=== PATIENT | female | born 1950 | race African-American/Black ===

== ENCOUNTER 2017-05-27 15:18 | Inpatient (IN) | payer OTHER, MEDICAID ==
[~2017-05-27] VITALS: Ht 157.5 cm; Wt 72.6 kg
[2017-05-27 15:30] VITALS: BP 99/59
[2017-05-27] MEDS ORDERED: CEFEPIME 2,000 MG in DEXTROSE 5% 100 ML IV ONE (17:20)
[2017-05-27] MEDS ORDERED: VANCOMYCIN 1GM/DEXT 5% PREMIX 200 ML IV ONE (17:20)
[2017-05-27] MEDS ORDERED: LEVOFLOXACIN 750 MG/D5W PREMIX 150 ML IV ONE (17:20)
[2017-05-27] MEDS ORDERED: VANCOMYCIN PER PHARMACY MC PRN (17:20)
[2017-05-27] MEDS ORDERED: [UNRECOGNIZED DRUG - OTHER] (17:46)
[2017-05-27] MEDS ORDERED: BUPRENORPHINE 10 MCG/HR (17:46)
[2017-05-27] MEDS ORDERED: CEFEPIME 2,000 MG VIAL IV ONE (18:08)
[2017-05-27 18:09] LABS: BASOPHILS # (AUTO) 0.1 K/uL (0.00-0.22); EOSINOPHILS % (AUTO) 0.4 % (0.0-4.0); HEMATOCRIT 39.9 % (36-48); HEMOGLOBIN 12.6 g/dL (12.0-16.0); LYMPHOCYTES # (AUTO) 0.4 K/uL (2.5-16.5); MEAN CORPUSCULAR HEMOGLOBIN 29 pg (27-31); MEAN CORPUSCULAR HGB CONC 32 g/dL (33-37); MEAN CORPUSCULAR VOLUME 92 fL (80-94); MONOCYTES # (AUTO) 0.8 K/uL (0.8-1.0); NEUTROPHILS # (AUTO) 5.9 K/uL (1.8-7.7); PLATELET COUNT (AUTO) 138 K/uL (140-450); RED BLOOD CELL COUNT(AUTO) 4.35 MIL/uL (4.20-5.40); WHITE BLOOD COUNT (AUTO) 7.2 K/uL (4.8-10.8)
[2017-05-27 19:06] LABS: PROTHROMBIN TIME 18.9 secs (10.8-13.4)
[2017-05-27 21:52] LABS: LYMPHOCYTES % (AUTO) 5.6 % (20.5-51.1); RED CELL DISTRIBUTION WIDTH 22.4 % (11.6-13.7)
[2017-05-27] MEDS ORDERED: ONDANSETRON 4 MG/2 ML VIAL IM/IVP PRN (21:55)
[2017-05-27] MEDS ORDERED: LORazepam 0.5 MG TAB PO PRN (21:55)
[2017-05-27] MEDS ORDERED: ACETAMINOPHEN 325 MG TAB PO PRN (21:55)
[2017-05-27] MEDS ORDERED: HYDROcodone/APAP 7.5/325 MG 1 TAB PO PRN (21:55)
[2017-05-27] MEDS ORDERED: DOCUSATE SODIUM 100 MG GELCAP PO PRN (21:55)
[2017-05-27] MEDS ORDERED: ZOLPIDEM 5 MG TAB PO PRN (21:55)
[2017-05-27] MEDS ORDERED: MORPHINE SULFATE 2 MG/ML SYR IVP PRN (21:55)
[2017-05-27 22:11] LABS: ALBUMIN 3.1 g/dL (3.4-5.0); ANION GAP 18.4 (8-16); CARBON DIOXIDE 22.8 mmol/L (21-32); MAGNESIUM 2.3 mg/dL (1.8-2.4); POTASSIUM 5.2 mmol/L (3.5-5.1); TOTAL BILIRUBIN 1.3 mg/dL (0.0-1.0)
[2017-05-27 22:34] LABS: CREATININE 4.5 mg/dL (0.6-1.3)
[2017-05-27 22:40] VITALS: BP 98/67
[2017-05-27] MEDS ORDERED: RIVA15TA1 PO (23:19)
[2017-05-27] MEDS ORDERED: INSU-1163 SQ (23:19)
[2017-05-27] MEDS ORDERED: INSU100S53 SC (23:19)
[2017-05-27] MEDS: NACL 0.9% 1,000 ML IV SCH (23:45)
[2017-05-28] VITALS: BP 110/75
[2017-05-28] MEDS ORDERED: LEVOFLOXACIN 750 MG/D5W PREMIX 150 ML IV SCH (00:45)
[2017-05-28] MEDS ORDERED: INSULIN LISPRO SLIDING SCALE 100 UNITS/ML VIAL SUBQ PRN (00:55)
[2017-05-28] MEDS ORDERED: DEXTROSE 50% 50 ML SYR IVP PRN (00:55)
[2017-05-28] MEDS ORDERED: MECLIZINE 25 MG TAB PO PRN (00:55)
[2017-05-28 02:33] LABS: CHOL/HDL RATIO 2.7 (1-4.5); FREE T4 (FREE THYROXINE) 1.17 ng/dL (0.76-1.46); PHOSPHORUS 5.4 mg/dL (2.5-4.9); THYROID STIMULATING HORMONE 5.08 uIU/mL (0.34-3.74)
[2017-05-28 04:00] VITALS: BP 101/48
[2017-05-28] MEDS: CLINDAMYCIN 600 MG in DEXTROSE 5% 50 ML IV SCH ×3 (05:09→18:37)
[2017-05-28] MEDS ORDERED: Z-GUARD PASTE TP PRN (05:10)
[2017-05-28] MEDS ORDERED: CLINDAMYCIN 600 MG/4 ML VIAL ONE (05:13)
[2017-05-28] MEDS: guaiFENesin DM 200/20 MG-10 ML 10 ML UDC PO PRN ×2 (06:18→12:00)
[2017-05-28] MEDS: BLOOD GLUCOSE MONITORING 1 DEV DEV FS SCH ×4 (06:31→20:30)
[2017-05-28 07:29] LABS: BASOPHILS # (AUTO) 0.1 K/uL (0.00-0.22); BASOPHILS % (AUTO) 1.6 % (0.0-2.0); EOSINOPHILS % (AUTO) 0.4 % (0.0-4.0); HEMATOCRIT 36.5 % (36-48); HEMOGLOBIN 11.9 g/dL (12.0-16.0); LYMPHOCYTES # (AUTO) 0.5 K/uL (2.5-16.5); LYMPHOCYTES % (AUTO) 7.2 % (20.5-51.1); MEAN CORPUSCULAR HEMOGLOBIN 30 pg (27-31); MEAN CORPUSCULAR HGB CONC 33 g/dL (33-37); MEAN CORPUSCULAR VOLUME 92 fL (80-94); MONOCYTES % (AUTO) 14.4 % (1.7-9.3); NEUTROPHILS # (AUTO) 5.6 K/uL (1.8-7.7); NEUTROPHILS % (AUTO) 76.4 % (42.2-75.2); PLATELET COUNT (AUTO) 131 K/uL (140-450); RED BLOOD CELL COUNT(AUTO) 3.96 MIL/uL (4.20-5.40)
[2017-05-28 08:00] VITALS: BP 106/60
[2017-05-28 08:09] LABS: MAGNESIUM 2.2 mg/dL (1.8-2.4)
[2017-05-28 08:10] LABS: PHOSPHORUS 5.7 mg/dL (2.5-4.9)
[2017-05-28 08:43] LABS: WHITE BLOOD COUNT (AUTO) 7.2 K/uL (4.8-10.8)
[2017-05-28 09:30] LABS: POTASSIUM 5.6 mmol/L (3.5-5.1)
[2017-05-28 09:31] LABS: ANION GAP 16.6 (8-16)
[2017-05-28 09:33] LABS: CREATININE 4.7 mg/dL (0.6-1.3)
[2017-05-28] MEDS: LACTOBACILLUS RHAMNOSUS GG 1 EACH CAP PO SCH (10:47)
[2017-05-28] MEDS ORDERED: ASPI81CT89 PO (11:58)
[2017-05-28 12:00] VITALS: BP 100/65
[2017-05-28] MEDS ORDERED: CARV25TA2 PO (12:03)
[2017-05-28] MEDS ORDERED: FURO-570 PO (12:03)
[2017-05-28] MEDS ORDERED: ATOR40TA PO (12:03)
[2017-05-28] MEDS ORDERED: INSU100S53 SC (12:03)
[2017-05-28] MEDS ORDERED: CALCIUM ACETATE 667 MG TAB PO SCH (12:30)
[2017-05-28] MEDS ORDERED: SODIUM POLYSTYRENE 15 GM/60 ML UDBTL PO SCH (12:30)
[2017-05-28 12:42] LABS: APPEARANCE,URINE CLOUDY (CLEAR); BILIRUBIN,URINE 1+ (NEGATIVE); BLOOD, URINE NEGATIVE (NEGATIVE); COLOR,URINE BROWN (YELLOW); LEUKOCYTE ESTERASE ,URINE NEGATIVE (NEGATIVE); NITRITE, URINE NEGATIVE (NEGATIVE); UGLUCOSE NEGATIVE (NEGATIVE)
[2017-05-28 16:00] VITALS: BP 94/71
[2017-05-28 20:00] VITALS: BP 94/60
[2017-05-28] MEDS: INSULIN DETEMIR 100 UNITS/ML 10 ML VIAL SUBQ SCH (20:28)
[2017-05-28] MEDS: ATORVASTATIN 20 MG TAB PO SCH (20:30)
[2017-05-28] MEDS ORDERED: LEVOFLOXACIN 500 MG/D5W PREMIX 100 ML IV SCH (21:00)
[2017-05-28] MEDS: CARVEDILOL 12.5 MG TAB PO SCH (21:00)
[2017-05-28] MEDS ORDERED: INSULIN DETEMIR 100 UNITS/ML 10 ML VIAL SUBQ SCH (21:00)
[2017-05-28] MEDS: NACL 0.9% 1,000 ML IV SCH (21:52)
[2017-05-29] VITALS: BP 98/64
[2017-05-29] MEDS: guaiFENesin DM 200/20 MG-10 ML 10 ML UDC PO PRN ×3 (00:18→21:00)
[2017-05-29] MEDS: CLINDAMYCIN 600 MG in DEXTROSE 5% 50 ML IV SCH ×4 (00:19→19:44)
[2017-05-29 04:00] VITALS: BP 90/62
[2017-05-29] MEDS: BLOOD GLUCOSE MONITORING 1 DEV DEV FS SCH ×4 (06:26→20:42)
[2017-05-29 08:00] VITALS: BP 102/58
[2017-05-29] MEDS ORDERED: CALCIUM ACETATE 667 MG TAB PO SCH (08:00)
[2017-05-29 08:35] LABS: BASOPHILS # (AUTO) 0.1 K/uL (0.00-0.22); EOSINOPHILS % (AUTO) 0.4 % (0.0-4.0); HEMATOCRIT 36.1 % (36-48); HEMOGLOBIN 11.8 g/dL (12.0-16.0); LYMPHOCYTES # (AUTO) 0.5 K/uL (2.5-16.5); LYMPHOCYTES % (AUTO) 7.8 % (20.5-51.1); MEAN CORPUSCULAR HEMOGLOBIN 30 pg (27-31); MEAN CORPUSCULAR HGB CONC 33 g/dL (33-37); MEAN CORPUSCULAR VOLUME 92 fL (80-94); MONOCYTES # (AUTO) 0.9 K/uL (0.8-1.0); MONOCYTES % (AUTO) 13.1 % (1.7-9.3); NEUTROPHILS # (AUTO) 5.2 K/uL (1.8-7.7); NEUTROPHILS % (AUTO) 77.7 % (42.2-75.2); PLATELET COUNT (AUTO) 135 K/uL (140-450); RED BLOOD CELL COUNT(AUTO) 3.95 MIL/uL (4.20-5.40); RED CELL DISTRIBUTION WIDTH 21.7 % (11.6-13.7); WHITE BLOOD COUNT (AUTO) 6.7 K/uL (4.8-10.8)
[2017-05-29] MEDS: LACTOBACILLUS RHAMNOSUS GG 1 EACH CAP PO SCH (08:40)
[2017-05-29] MEDS: CALCIUM ACETATE 667 MG TAB PO SCH (08:40)
[2017-05-29] MEDS: ASPIRIN 81 MG TAB.CHEW PO SCH (08:41)
[2017-05-29] MEDS: FUROSEMIDE 40 MG TAB PO SCH (08:41)
[2017-05-29] MEDS: CARVEDILOL 12.5 MG TAB PO SCH ×2 (08:41→20:48)
[2017-05-29 08:47] LABS: ANION GAP 14.7 (8-16); CARBON DIOXIDE 25.4 mmol/L (21-32); CREATININE 3.8 mg/dL (0.6-1.3); POTASSIUM 4.1 mmol/L (3.5-5.1)
[2017-05-29 08:56] LABS: PHOSPHORUS 5.5 mg/dL (2.5-4.9)
[2017-05-29] MEDS: RIVAROXABAN 15 MG TAB PO SCH (10:33)
[2017-05-29 12:00] VITALS: BP 115/63
[2017-05-29 15:07] LABS: HEPATITIS A ANTIBODY IGM Negative (Negative); HEPATITIS B SURFACE ANTIBODY Reactive (.); HEPATITIS B SURFACE ANTIGEN Negative (Negative)
[2017-05-29 16:00] VITALS: BP 97/67
[2017-05-29] MEDS: INSULIN DETEMIR 100 UNITS/ML 10 ML VIAL SUBQ SCH (20:45)
[2017-05-29] MEDS: ATORVASTATIN 20 MG TAB PO SCH (20:48)
[2017-05-29] MEDS: NACL 0.9% 1,000 ML IV SCH (20:49)
[2017-05-29 22:04] VITALS: BP 97/58
[2017-05-30 04:00] VITALS: BP 90/57
[2017-05-30] MEDS: CLINDAMYCIN 600 MG in DEXTROSE 5% 50 ML IV SCH ×5 (06:11→18:31)
[2017-05-30] MEDS: BLOOD GLUCOSE MONITORING 1 DEV DEV FS SCH ×3 (06:44→17:25)
[2017-05-30 08:00] VITALS: BP 101/35
[2017-05-30] MEDS: CALCIUM ACETATE 667 MG TAB PO SCH (08:00)
[2017-05-30] MEDS ORDERED: IPRATROPIUM 0.02% 0.5 MG/2.5 ML NEBU INH PRN (08:55)
[2017-05-30] MEDS: FUROSEMIDE 40 MG TAB PO SCH (09:00)
[2017-05-30] MEDS: ASPIRIN 81 MG TAB.CHEW PO SCH (09:00)
[2017-05-30] MEDS: CARVEDILOL 12.5 MG TAB PO SCH (09:00)
[2017-05-30] MEDS: RIVAROXABAN 15 MG TAB PO SCH (09:00)
[2017-05-30] MEDS: LACTOBACILLUS RHAMNOSUS GG 1 EACH CAP PO SCH (09:00)
[2017-05-30] MEDS: ALBUTEROL 0.083% 2.5 MG/3 ML NEBU INH PRN ×2 (10:29→19:53)
[2017-05-30 12:00] VITALS: BP 95/70
[2017-05-30 12:30] LABS: HEPATITIS B CORE AB TOTAL POSITIVE (NEGATIVE)
[2017-05-30] MEDS: guaiFENesin DM 200/20 MG-10 ML 10 ML UDC PO PRN ×2 (12:35→18:31)
[2017-05-30 12:59] LABS: HEMATOCRIT 36.6 % (36-48); HEMOGLOBIN 11.8 g/dL (12.0-16.0); MEAN CORPUSCULAR HEMOGLOBIN 30 pg (27-31); MEAN CORPUSCULAR HGB CONC 32 g/dL (33-37); MEAN CORPUSCULAR VOLUME 92 fL (80-94); PLATELET COUNT (AUTO) 122 K/uL (140-450); RED BLOOD CELL COUNT(AUTO) 3.99 MIL/uL (4.20-5.40); RED CELL DISTRIBUTION WIDTH 22.1 % (11.6-13.7); WHITE BLOOD COUNT (AUTO) 5.5 K/uL (4.8-10.8)
[2017-05-30 13:05] LABS: ANION GAP 9.9 (8-16); CARBON DIOXIDE 31.3 mmol/L (21-32); CREATININE 3.3 mg/dL (0.6-1.3); POTASSIUM 3.2 mmol/L (3.5-5.1)
[2017-05-30 13:37] LABS: BASOPHILS % (MANUAL) 1 % (0-2); EOSINOPHILS % (MANUAL) 0 % (0-4); LYMPHOCYTES % (MANUAL) 17 % (20-46); MONOCYTES % (MANUAL) 5 % (5-12)
[2017-05-30 16:00] VITALS: BP 86/57
[2017-05-30] MEDS ORDERED: DEXT5SYR3 PO (17:17)
[2017-05-30] MEDS ORDERED: LACT10CA PO (17:17)
[2017-05-30] MEDS ORDERED: LEVO750T2 PO (17:17)
[2017-05-30] MEDS ORDERED: BUDESONIDE 0.25 MG/2 ML NEBU INH SCH (19:30)
[2017-05-30 20:00] VITALS: BP 98/56
== END 2017-05-30 20:50 | disposition home or self-care (01) | DRG 291 ==
LOC: MED 15:18 → MTU 21:52
PROVIDERS: ADMIT Student in an Organized Health Care Education/Training Program; ATTEND Student in an Organized Health Care Education/Training Program
PROC: 5A1D70Z Performance of Urinary Filtration, Intermittent, Less than 6 Hours Per Day (ICD-10-PCS; principal; 2017-05-28)
PROC: 5A1D70Z Performance of Urinary Filtration, Intermittent, Less than 6 Hours Per Day (ICD-10-PCS; 2017-05-30)
DX: I13.2 Hypertensive heart and chronic kidney disease with heart failure and with stage 5 chronic kidney disease, or end stage renal disease (principal); N17.0 Acute kidney failure with tubular necrosis; G93.41 Metabolic encephalopathy; E44.0 Moderate protein-calorie malnutrition; J18.9 Pneumonia, unspecified organism; D68.59 Other primary thrombophilia; E11.22 Type 2 diabetes mellitus with diabetic chronic kidney disease; N18.6 End stage renal disease; I50.43 Acute on chronic combined systolic (congestive) and diastolic (congestive) heart failure; E11.65 Type 2 diabetes mellitus with hyperglycemia; G90.9 Disorder of the autonomic nervous system, unspecified; I48.91 Unspecified atrial fibrillation; K74.60 Unspecified cirrhosis of liver; D64.9 Anemia, unspecified; E66.3 Overweight; Z99.2 Dependence on renal dialysis; Z68.29 Body mass index [BMI] 29.0-29.9, adult; Z71.3 Dietary counseling and surveillance; Z95.810 Presence of automatic (implantable) cardiac defibrillator; Z98.891 History of uterine scar from previous surgery
CPT/HCPCS: 36415; 70450; 71045; 76604; 76700; 80048; 80053; 81003; 82150; 82948; 83036; 83605; 83690; 83735; 83880; 84100; 84436; 84439; 84443; 84479; 84484; 85025; 85610; 85730; 86704; 86706; 86708; 86709; 86803; 87040; 87070; 87081; 87205; 87340; 90935; 93005; 93880; 93925; 93970; 94640; 96365; 96367; 97110; 99285; J0692; J1815; J1956; J3370; J3490; J7030; J7060; J7613; J7626; J7644; Q0092